=== PATIENT | female | born 1990 | race Asian ===

== ENCOUNTER 2020-05-09 14:35 | Emergency (ER) | payer OTHER ==
[~2020-05-09] VITALS: Ht 160 cm; Wt 68.0 kg
--- NOTE | 2020-05-09 15:14 | PHYS DOC ---
General Adult EDM: Chief Complaint: VAGINAL BLEEDING HPI: HPI: Patient is a 29 year old who presents with last menstrual period being April 19 and yesterday she noticed some blood in her urine only. She states she does not have any vaginal discharge or bleeding. She states that she made a appointment with a doctor on June 05. She states she is moved here from [place] and has not previously seen a doctor here. She states that she took a test and she was . She has had 2 pregnancies in the past without complication. She has a 1 out of 10 mid lower abdominal cramping type pain. Patient denies nausea, vomiting, diarrhea, dizziness, headache, chest pain, shortness of air, fever, back pain, abnormal vaginal discharge, vaginal bleeding. Review of Systems: Review of Systems: Constitutional: Denies fever or chills. [] Eyes: Denies change in visual acuity. [] HENT: Denies nasal congestion or sore throat. [] Respiratory: Denies cough or shortness of breath. [] Cardiovascular: Denies chest pain or edema. [] GI: + Low mid abdominal pain, denies nausea, vomiting, bloody stools or diarrhea. [] : Denies dysuria. Blood in urine. [] Musculoskeletal: Denies back pain or joint pain. [] Integument: Denies rash. [] Neurologic: Denies headache, focal weakness or sensory changes. [] Endocrine: Denies polyuria or polydipsia. [] Lymphatic: Denies swollen glands. [] Psychiatric: Denies depression or anxiety. [] Heart Score: Risk Factors: Risk Factors: DM, Current or recent (<one month) smoker, HTN, HLP, family history of CAD, obesity. Risk Scores: Score 0 - 3: 2.5% MACE over next 6 weeks - Discharge Home Score 4 - 6: 20.3% MACE over next 6 weeks - Admit for Clinical Observation Score 7 - 10: 72.7% MACE over next 6 weeks - Early Invasive Strategies Allergies: Allergies: Allergies Coded Allergies Type Severity Reaction Last Updated Verified No Known Drug Allergies 05/09/20 No Physical Exam: PE: Constitutional: Well developed, well nourished, no acute distress, non-toxic appearance. [] HENT: Normocephalic, atraumatic, bilateral external ears normal, oropharynx moist, no oral exudates, nose normal. [] Eyes: PERRLA, EOMI, conjunctiva normal, no discharge. [] Neck: Normal range of motion, no tenderness, supple, no stridor. [] Cardiovascular:Heart rate regular rhythm, no murmur [] Lungs & Thorax: Bilateral breath sounds clear to auscultation [] Abdomen: Bowel sounds normal, soft, no tenderness, no masses, no pulsatile clary s. [] Skin: Warm, dry, no erythema, no rash. [] Back: No tenderness, no CVA tenderness. [] Extremities: No tenderness, no cyanosis, no clubbing, ROM intact, no edema. [] Neurologic: Alert and oriented X 3, normal motor function, normal sensory function, no focal deficits noted. [] Psychologic: Affect normal, judgement normal, mood normal. Normal physical exam. [] Current Patient Data: Labs: Laboratory Tests Test 05/09/20 14:57 POC Urine HCG, Qualitative Hcg negative (Negative) EKG: EKG: [] Radiology/Procedures: Radiology/Procedures: [] Impression: [facility] [address] [place] [address] IMAGING REPORT Signed PATIENT: JOAN RIVERS ACCOUNT: [id number] : 1990 LOCATION: ER AGE: 29 SEX: F EXAM STATUS: REG ER ORD. PHYSICIAN: NOLAN STRONG APRN REASON: BLOOD IN URINE, ABD PAIN PROCEDURE: CT ABDOMEN PELVIS WO CONTRAST INDICATION: Reason: BLOOD IN URINE, ABD PAIN / Spl. Instructions: / History: COMPARISON: None. TECHNIQUE: Axial CT images obtained through the abdomen and pelvis without contrast. One or more of the following individualized dose reduction techniques were utilized for this examination: 1. Automated exposure control; 2. Adjustment of the mA and/or kV according to patient size; 3. Use of iterative reconstruction technique. FINDINGS: Abdominal aorta is not aneurysmal. Small fat-containing umbilical hernia. No intrahepatic bile duct dilation. No peripancreatic fluid collection. Spleen unremarkable. No hydronephrosis. Urinary bladder distended at time of exam. There is some fullness in the right adnexa. The suspected appendix is only partially seen secondary to multiple loops of unopacified bowel within the region. There is not definitive adjacent inflammatory changes. Moderate compression fracture of L2 with retropulsion. IMPRESSION: * No hydronephrosis. The urinary bladder is dilated at time of exam. This could be from the patient not urinating recently but would correlate with symptoms to ensure there is not a pathologic cause such as bladder outlet obstruction. * Within the right adnexa there is some fullness seen. Cannot exclude a right ovarian lesion given this finding and if further evaluation is desired ultrasound could further assess. * Moderate compression fracture of L2 with retropulsion. Would correlate with history of fracture. Electronically signed by: Lokesh Quiros MD (05/09/2020 5:03 PM) [id number] DICTATED and SIGNED BY: LOKESH QUIROS MD DATE: 05/09/20 1703 [facility] [address] [place] [address] IMAGING REPORT Signed PATIENT: JOAN RIVERS ACCOUNT: [id number] : 1990 LOCATION: ER AGE: 29 SEX: F EXAM STATUS: REG ER ORD. PHYSICIAN: NOLAN STRONG APRN REASON: abnormal CT PROCEDURE: PELVIS ULTRASOUND EXAMINATION: PELVIS ULTRASOUND, 05/09/2020 5:20 PM CLINICAL INDICATION: Abnormal CT TECHNIQUE: Grayscale, color and spectral Doppler ultrasound images of the pelvis via transabdominal and transvaginal approach. COMPARISON: CT abdomen pelvis 05/09/2020 FINDINGS: The uterus measures 9.0 x 5.1 x 4.2 cm. The endometrial stripe measures 4 mm in thickness. No myometrial mass. The right ovary measures 3.5 x 2.6 x 2.6 cm. There is an anechoic right ovarian cyst measuring 2.9 x 2.1 x 1.7 cm. Normal ultrasound venous Doppler blood flow to the right ovary. The left ovary measures 2.8 x 1.9 x 1.7 cm. There is normal right ovarian parenchyma. Normal ultrasound venous Doppler blood flow to the left ovary. No adnexal mass or free fluid. IMPRESSION: 2.9 cm simple right ovarian cyst. No evidence of ovarian torsion or other acute abnormality. Electronically signed by: Mahsa Huber MD (05/09/2020 6:49 PM) [id number] DICTATED and SIGNED BY: MAHSA HUBER MD DATE: 05/09/20 1849 Course & Med Decision Making: Course & Med Decision Making Pertinent Labs and Imaging studies reviewed. (See chart for details) Alert and oriented x4. Kiswahili speaking. Glass Sander Belt phone was used. Abdomen is soft and nontender. Ambulatory with a steady gait. Skin pink warm and dry. Vital signs within normal limits. Patient denies any concerns for sexually tra nsmitted diseases. Blood work shows no acute findings. Patient is not . CT shows ovarian cyst and so this ultrasound. I will treat the patient for her urinary symptoms. Patient to follow-up with a sports medicine trainer or the primary care doctor that she is scheduled to see on June 05. Karen Disclaimer: Karen Disclaimer: This electronic medical record was generated, in whole or in part, using a voice recognition dictation system. Departure Departure Impression: Primary Impression: Urinary symptom or sign Additional Impression: Ovarian cyst Qualified Codes: N83.201 - Unspecified ovarian cyst, right side Disposition: HOME, SELF-CARE Condition: STABLE Referrals: NO PCP (PCP) VOLODYMYR DASILVA Jr, MD Patient Instructions: Dysuria-Brief, Ovarian Cyst, [id number] Additional Instructions: Take medication as prescribed and with food. Follow-up with a sports medicine trainer or t he primary care doctor that you have scheduled an appointment with. Drink plenty of fluids. Take ibuprofen or Tylenol for your pain. Scripts Cephalexin (KEFLEX) 500 Mg Capsule 1 CAP PO BID for 7 Days, #14 CAP 0 Refills Prov: NOLAN STRONG APRN 05/09/20 Justicifation of Admission Dx: Justifications for Admission: Justification of Admission Dx: N/A NOLAN STRONG APRN May 09, 2020 15:14
[2020-05-09] MEDS ORDERED: IV NORMAL SALINE 1000ML BAG 1,000 ML IV SCH (15:20)
[2020-05-09 15:31] LABS: BASO # 0.1 x10^3/uL (0.0-0.2); BASO % 1 % (0-3); EOS # 0.1 x10^3/uL (0.0-0.7); EOS % 1 % (0-3); HEMATOCRIT 44.3 % (36.0-47.0); HEMOGLOBIN 15.2 g/dL (12.0-15.5); LYMPH # 2.7 x10^3/uL (1.0-4.8); LYMPH % 27 % (24-48); MEAN CORPUSCULAR HEMOGLOBIN 32 pg (25-35); MEAN CORPUSCULAR HGB CONC 34 g/dL (31-37); MEAN CORPUSCULAR VOLUME 92 fL (79-100); MONO # 0.6 x10^3/uL (0.0-1.1); MONO % 6 % (0-9); NEUT # 6.8 x10^3/uL (1.8-7.7); NEUT % 66 % (31-73); PLATELET COUNT 337 x10^3/uL (140-400); RED CELL DISTRIBUTION WIDTH 12.9 % (11.5-14.5); WHITE BLOOD COUNT 10.2 x10^3/uL (4.0-11.0)
[2020-05-09 15:31] LABS: BILIRUBIN,URINE NEGATIVE (NEG); CLARITY,URINE CLEAR; COLOR,URINE YELLOW; NITRITE,URINE NEGATIVE (NEG); PROTEIN,URINE 30 mg/dL (NEG-TRACE); UROBILINOGEN,URINE 0.2 mg/dL (0.2 mg/dL)
[2020-05-09 15:37] LABS: CALCIUM 9.3 mg/dL (8.5-10.1); CREATININE 0.8 mg/dL (0.6-1.0); GFR 84.8; POTASSIUM 3.3 mmol/L (3.5-5.1)
[2020-05-09 15:44] LABS: ALBUMIN 3.9 g/dL (3.4-5.0); TOTAL BILIRUBIN 0.5 mg/dL (0.2-1.0); TOTAL PROTEIN 7.9 g/dL (6.4-8.2)
[2020-05-09 15:46] LABS: PROTHROMBIN TIME PATIENT 12.1 SEC (11.7-14.0)
[2020-05-09 16:09] LABS: BACTERIA,URINE 0 /HPF (0-FEW); RBC,URINE OCC /HPF (0-2); SQUAMOUS EPITHELIAL CELL,UR OCC /LPF; WBC,URINE OCC /HPF (0-4)
--- NOTE | 2020-05-09 17:06 | RAD ---
INDICATION: Reason: BLOOD IN URINE, ABD PAIN / Spl. Instructions: / History: COMPARISON: None. TECHNIQUE: Axial CT images obtained through the abdomen and pelvis without contrast. One or more of the following individualized dose reduction techniques were utilized for this examination: 1. Automated exposure control; 2. Adjustment of the mA and/or kV according to patient size; 3. Use of iterative reconstruction technique. FINDINGS: Abdominal aorta is not aneurysmal. Small fat-containing umbilical hernia. No intrahepatic bile duct dilation. No peripancreatic fluid collection. Spleen unremarkable. No hydronephrosis. Urinary bladder distended at time of exam. There is some fullness in the right adnexa. The suspected appendix is only partially seen secondary to multiple loops of unopacified bowel within the region. There is not definitive adjacent inflammatory changes. Moderate compression fracture of L2 with retropulsion. IMPRESSION: * No hydronephrosis. The urinary bladder is dilated at time of exam. This could be from the patient not urinating recently but would correlate with symptoms to ensure there is not a pathologic cause such as bladder outlet obstruction. * Within the right adnexa there is some fullness seen. Cannot exclude a right ovarian lesion given this finding and if further evaluation is desired ultrasound could further assess. * Moderate compression fracture of L2 with retropulsion. Would correlate with history of fracture. Electronically signed by: Abhilash Cruz MD (05/09/2020 5:03 PM) [id number]
--- NOTE | 2020-05-09 18:52 | RAD ---
EXAMINATION: PELVIS ULTRASOUND, 05/09/2020 5:20 PM CLINICAL INDICATION: Abnormal CT TECHNIQUE: Grayscale, color and spectral Doppler ultrasound images of the pelvis via transabdominal and transvaginal approach. COMPARISON: CT abdomen pelvis 05/09/2020 FINDINGS: The uterus measures 9.0 x 5.1 x 4.2 cm. The endometrial stripe measures 4 mm in thickness. No myometrial mass. The right ovary measures 3.5 x 2.6 x 2.6 cm. There is an anechoic right ovarian cyst measuring 2.9 x 2.1 x 1.7 cm. Normal ultrasound venous Doppler blood flow to the right ovary. The left ovary measures 2.8 x 1.9 x 1.7 cm. There is normal right ovarian parenchyma. Normal ultrasound venous Doppler blood flow to the left ovary. No adnexal mass or free fluid. IMPRESSION: 2.9 cm simple right ovarian cyst. No evidence of ovarian torsion or other acute abnormality. Electronically signed by: aMhsa Huber MD (05/09/2020 6:49 PM) [id number]
[2020-05-09] MEDS ORDERED: CEPH-264 PO (18:56)
[2020-05-09 19:05] VITALS: BP 141/100
== END 2020-05-09 19:12 | disposition home or self-care (01) ==
LOC: ER 14:35
DX: N83.291 Other ovarian cyst, right side (principal); R31.9 Hematuria, unspecified
CPT/HCPCS: 36415; 74176; 76856; 80053; 81001; 81025; 84702; 85025; 85610; 86850; 86900; 86901; 96360; 96361; 99285; J7030

== ENCOUNTER 2020-08-26 13:40 | Emergency (ER) | payer OTHER ==
[~2020-08-26] VITALS: Ht 160 cm; Wt 67.3 kg
[~2020-08-26 13:40] MED LIST: CEPH-264 PO
[2020-08-26 14:55] LABS: BILIRUBIN,URINE NEGATIVE (NEG); CLARITY,URINE CLEAR; COLOR,URINE YELLOW; NITRITE,URINE NEGATIVE (NEG); PH,URINE 6.5 (<5.0-8.0); PROTEIN,URINE NEGATIVE (NEG-TRACE); UROBILINOGEN,URINE 0.2 mg/dL (0.2 mg/dL)
[2020-08-26 14:59] LABS: BACTERIA,URINE 0 /HPF (0-FEW); RBC,URINE OCC /HPF (0-2); WBC,URINE 0 /HPF (0-4)
--- NOTE | 2020-08-26 15:19 | PHYS DOC ---
Past Medical History Past Medical History: No Pertinent History (KIRAN LLANES APRN) Past Surgical History: (KIRAN LLANES APRN) Smoking Status: Never Smoker Alcohol Use: None (KIRAN LLANES APRN) General Adult EDM: Chief Complaint: ABDOMINAL PAIN HPI: HPI: Patient is a 30 year old Yakut speaking female very poor historian presenting to the ED today complaining of epigastric burning pain, abdominal swelling, sym ptoms began a couple days ago. Patient is also complaining of nausea and poor appetite. Research Biostatistician line is being used but communication is still difficult. She was informed she is . She states she has been twice before and has lost 1 . She states she had a positive test in June but had a vaginal bleeding episode and thought she lost the . Her last menstrual cycle was June 30, 2020. She denies any vaginal bleeding today. (KIRAN LLANES APRN) Review of Systems: Review of Systems: Constitutional: Denies fever or chills. [] Eyes: Denies change in visual acuity. [] HENT: Denies nasal congestion or sore throat. [] Respiratory: Denies cough or shortness of breath. [] Cardiovascular: Denies chest pain or edema. [] GI: Reports abdominal pain, poor appetite, nausea, denies vomiting, bloody stools or diarrhea. [] : Denies dysuria. [] Musculoskeletal: Denies back pain or joint pain. [] Integument: Denies rash. [] Neurologic: Denies headache, focal weakness or sensory changes. [] Psychiatric: Denies depression or anxiety. [] (KIRAN LLANES APRN) Heart Score: Risk Factors: Risk Factors: DM, Current or recent (<one month) smoker, HTN, HLP, family history of CAD, obesity. Risk Scores: Score 0 - 3: 2.5% MACE over next 6 weeks - Discharge Home Score 4 - 6: 20.3% MACE over next 6 weeks - Admit for Clinical Observation Score 7 - 10: 72.7% MACE over next 6 weeks - Early Invasive Strategies (KIRAN LLANES APRN) Allergies: Allergies: Allergies Coded Allergies Type Severity Reaction Last Updated Verified No Known Drug Allergies 08/26/20 No (KIRAN LLANES APRN) Physical Exam: PE: Constitutional: Well developed, well nourished, no acute distress, non-toxic appearance. [] HENT: Normocephalic, atraumatic, bilateral external ears normal, oropharynx moist, no oral exudates, nose normal. [] Eyes: PERRLA, EOMI, conjunctiva normal, no discharge. [] Neck: Normal range of motion, no tenderness, supple, no stridor. [] Cardiovascular:Heart rate regular rhythm, no murmur [] Lungs & Thorax: Bilateral breath sounds clear to auscultation [] Abdomen: Bowel sounds normal, soft, no tenderness, no masses, no pulsatile mas ses. [] Skin: Warm, dry, no erythema, no rash. [] Back: No tenderness, no CVA tenderness. [] Extremities: No tenderness, no cyanosis, no clubbing, ROM intact, no edema. [] Neurologic: Alert and oriented X 3, normal motor function, normal sensory function, no focal deficits noted. [] Psychologic: Affect normal, judgement normal, mood normal. [] (KIRAN LLANES APRN) Current Patient Data: Labs: Laboratory Tests Test 08/26/20 13:50 08/26/20 14:00 Urine Collection Type Unknown Urine Color Yellow Urine Clarity Clear Urine pH 6.5 (<5.0-8.0) Urine Specific Homer <=1.005 (1.000-1.030) Urine Protein Negative mg/dL (NEG-TRACE) Urine Glucose (UA) Negative mg/dL (NEG) Urine Ketones (Stick) Negative mg/dL (NEG) Urine Blood Trace (NEG) Urine Nitrite Negative (NEG) Urine Bilirubin Negative (NEG) Urine Urobilinogen Dipstick 0.2 mg/dL (0.2 mg/dL) Urine Leukocyte Esterase Negative (NEG) Urine RBC Occ /HPF (0-2) Urine WBC 0 /HPF (0-4) Urine Squamous Epithelial Cells Few /LPF Urine Bacteria 0 /HPF (0-FEW) POC Urine HCG, Qualitative Hcg positive (Negative) Vital Signs: Vital Signs Date Time Temp Pulse Resp B/P (MAP) Pulse Ox O2 Delivery O2 Flow Rate FiO2 08/26/20 14:30 98.6 86 18 145/98 (114) 100 Room Air 98.6 (KIRAN LLANES APRN) EKG: EKG: [] (KIRAN LLANES APRN) Radiology/Procedures: Radiology/Procedures: []PROCEDURE: OB < 14 WKS Exam: Ultrasound pelvis Indication: Abdominal pain and Technique: Real-time grayscale and color Doppler images of the pelvis were obtained by the department distribution systems superintendent. Comparisons: 05/09/2020 FINDINGS: Uterus measures 11 x 6.8 x 5.4 cm. Within the endometrium there is a gestational sac with pole measuring 9 mm corresponding to 6 weeks 6 days gestation. heart rate measured at 133 bpm. Right ovary measures 3.0 x 1.9 x 1.5 cm. Left ovary measures 3.1 x 1.7 x 1.7 cm. Vascular flow identified within the ovaries bilaterally. No free fluid. IMPRESSION: 1. Single live intrauterine gestation measuring 6 weeks 6 days by current ultrasound. 2. Dedicated survey is recommended at 18-20 weeks gestation. Electronically signed by: Nikkie Neff MD (08/26/2020 5:49 PM) [facility] DICTATED and SIGNED BY: NIKKIE NEFF MD DATE: 08/26/20 [id number] 0 (KIRAN LLANES APRN) Course & Med Decision Making: Course & Med Decision Making Pertinent Labs and Imaging studies reviewed. (See chart for details) This is a 30-year-old female patient Yakut speaking very poor historian presenting to the ED today complaining of abdominal pain specifically epigastric pain, with poor appetite, nausea and abdominal swelling. Positive urine hCG. This is a 3 para 1 right now with 1 miscarriage. UA negative for infection. CBC with a WBC of 12.6, hemoglobin hematocrit are normal, CMP with no acute findings. OB ultrasound -single live intrauterine gestation measuring 6 weeks 6 days by current ultrasound. Patient is in no distress. Results were discussed with patient and . They states they are from out of town. Provided that an BLEACH PACKER for follow-up. Discharged with Zofran. Return precautions provided. (KIRAN LLANES APRN) Karen Disclaimer: Karen Disclaimer: This electronic medical record was generated, in whole or in part, using a voice recognition dictation system. (KIRAN LLANES APRN) Departure Departure Impression: Primary Impression: Abdominal pain in Qualified Codes: O26.891 - Other specified related conditions, first trimester; R10.9 - Unspecified abdominal pain Disposition: 01 DC HOME SELF CARE/HOMELESS Condition: STABLE Referrals: NO PCP (PCP) VOLODYMYR DASILVA Jr, MD Patient Instructions: Abdominal Pain During , [id number] Additional Instructions: You are 6 weeks 6 days . Congratulations!!! Take the prescribed medication for nausea and vomiting. Please contact the provided BLEACH PACKER on Friday and set up a follow-up appointment. Scripts Ondansetron (ONDANSETRON ODT) 4 Mg Tab.rapdis 1 TAB PO PRN Q6-8HRS, #30 TAB Prov: KIRAN LLANES SENIOR TREASURY ANALYST 08/26/20 Attending Signature Attending Signature I have reviewed the PA/AUTOMOTIVE DIAGNOSTIC TECHNICIAN's note and plan of care. I was available for consultation as needed during the patient's visit in the emergency department. I agree with the clinical impression, plan, and disposition. (JANIE TANG DO) KIRAN LLANES SENIOR TREASURY ANALYST Aug 26, 2020 15:19 JANIE TANG DO Aug 26, 2020 19:00
[2020-08-26 15:24] LABS: BASO % 0 % (0-3); EOS # 0.1 x10^3/uL (0.0-0.7); EOS % 1 % (0-3); HEMATOCRIT 42.1 % (36.0-47.0); HEMOGLOBIN 14.4 g/dL (12.0-15.5); LYMPH # 2.9 x10^3/uL (1.0-4.8); LYMPH % 23 % (24-48); MEAN CORPUSCULAR HEMOGLOBIN 31 pg (25-35); MEAN CORPUSCULAR HGB CONC 34 g/dL (31-37); MEAN CORPUSCULAR VOLUME 92 fL (79-100); MONO % 8 % (0-9); NEUT # 8.6 x10^3/uL (1.8-7.7); NEUT % 68 % (31-73); PLATELET COUNT 290 x10^3/uL (140-400); RED BLOOD COUNT 4.57 x10^6/uL (3.50-5.40); RED CELL DISTRIBUTION WIDTH 12.8 % (11.5-14.5); WHITE BLOOD COUNT 12.6 x10^3/uL (4.0-11.0)
[2020-08-26 15:33] LABS: CALCIUM 9.1 mg/dL (8.5-10.1); CREATININE 0.7 mg/dL (0.6-1.0); GFR 98.3; POTASSIUM 3.9 mmol/L (3.5-5.1)
[2020-08-26 15:41] LABS: ALBUMIN 3.5 g/dL (3.4-5.0); ALBUMIN/GLOBULIN RATIO 0.9 (1.0-1.7); TOTAL BILIRUBIN 0.2 mg/dL (0.2-1.0); TOTAL PROTEIN 7.2 g/dL (6.4-8.2)
--- NOTE | 2020-08-26 17:51 | RAD ---
Exam: Ultrasound pelvis Indication: Abdominal pain and Technique: Real-time grayscale and color Doppler images of the pelvis were obtained by the department pole framer machine. Comparisons: 05/09/2020 FINDINGS: Uterus measures 11 x 6.8 x 5.4 cm. Within the endometrium there is a gestational sac with pole measuring 9 mm corresponding to 6 weeks 6 days gestation. heart rate measured at 133 bpm. Right ovary measures 3.0 x 1.9 x 1.5 cm. Left ovary measures 3.1 x 1.7 x 1.7 cm. Vascular flow identified within the ovaries bilaterally. No free fluid. IMPRESSION: 1. Single live intrauterine gestation measuring 6 weeks 6 days by current ultrasound. 2. Dedicated survey is recommended at 18-20 weeks gestation. Electronically signed by: Nikkie Syed MD (08/26/2020 5:49 PM) [facility]
[2020-08-26] MEDS ORDERED: ONDA4TAB12 PO (18:32)
[2020-08-26 19:12] VITALS: BP 138/86
== END 2020-08-26 19:21 | disposition home or self-care (01) ==
LOC: ER 13:40
DX: O26.891 Other specified pregnancy related conditions, first trimester (principal); R10.13 Epigastric pain; R11.0 Nausea; Z3A.01 Less than 8 weeks gestation of pregnancy
CPT/HCPCS: 36415; 76801; 80053; 81001; 81025; 84702; 85025; 99285-25

== ENCOUNTER 2020-09-03 18:40 | Emergency (ER) | payer OTHER ==
[~2020-09-03] VITALS: Ht 160 cm; Wt 75.9 kg
[~2020-09-03 18:40] MED LIST changes: +ONDA4TAB12 PO
[2020-09-03] MEDS ORDERED: METOCLOPRAMIDE HCL 10 MG/2 ML VIAL. IVP ONE (19:30)
[2020-09-03 19:35] LABS: BASO # 0.1 x10^3/uL (0.0-0.2); BASO % 1 % (0-3); EOS # 0.1 x10^3/uL (0.0-0.7); EOS % 0 % (0-3); HEMATOCRIT 42.5 % (36.0-47.0); HEMOGLOBIN 14.6 g/dL (12.0-15.5); LYMPH # 2.7 x10^3/uL (1.0-4.8); LYMPH % 20 % (24-48); MEAN CORPUSCULAR HEMOGLOBIN 32 pg (25-35); MEAN CORPUSCULAR HGB CONC 34 g/dL (31-37); MEAN CORPUSCULAR VOLUME 93 fL (79-100); MONO # 0.9 x10^3/uL (0.0-1.1); MONO % 7 % (0-9); NEUT # 9.7 x10^3/uL (1.8-7.7); NEUT % 73 % (31-73); PLATELET COUNT 299 x10^3/uL (140-400); RED BLOOD COUNT 4.58 x10^6/uL (3.50-5.40); RED CELL DISTRIBUTION WIDTH 12.7 % (11.5-14.5); WHITE BLOOD COUNT 13.4 x10^3/uL (4.0-11.0)
[2020-09-03 19:37] LABS: BILIRUBIN,URINE NEGATIVE (NEG); CLARITY,URINE CLEAR; COLOR,URINE YELLOW; NITRITE,URINE NEGATIVE (NEG); PH,URINE 7.5 (<5.0-8.0); PROTEIN,URINE NEGATIVE (NEG-TRACE); UROBILINOGEN,URINE 0.2 mg/dL (0.2 mg/dL)
[2020-09-03 19:43] LABS: CALCIUM 9.6 mg/dL (8.5-10.1); CREATININE 0.6 mg/dL (0.6-1.0); GFR 117.4; POTASSIUM 3.4 mmol/L (3.5-5.1)
[2020-09-03 19:49] LABS: BACTERIA,URINE 0 /HPF (0-FEW); RBC,URINE OCC /HPF (0-2); WBC,URINE OCC /HPF (0-4)
[2020-09-03 19:49] LABS: ALBUMIN 3.5 g/dL (3.4-5.0); ALBUMIN/GLOBULIN RATIO 0.9 (1.0-1.7); TOTAL BILIRUBIN 0.4 mg/dL (0.2-1.0); TOTAL PROTEIN 7.2 g/dL (6.4-8.2)
[2020-09-03] MEDS ORDERED: IV NORMAL SALINE 1000ML BAG 1,000 ML IV ONE (20:00)
[2020-09-03] MEDS ORDERED: ACETAMINOPHEN 500 MG TABLET PO ONE (21:00)
[2020-09-03] MEDS ORDERED: ONDANSETRON PF 4 MG/2 ML VIAL. IVP ONE (21:00)
[2020-09-03] MEDS ORDERED: METO5TAB55 PO (21:39)
--- NOTE | 2020-09-03 21:39 | PHYS DOC ---
Past Medical History Past Medical History: No Pertinent History Past Surgical History: Smoking Status: Never Smoker Alcohol Use: None Adult General Chief Complaint Chief Complaint: NAUSEA/VOMITING/DIARRHA HPI HPI Patient is a 30 year old female who is 9 weeks by last menstrual period now presenting emergency department complaining of new onset of nausea vomiting. Patient states over the last she had multiple episodes of difficulty controlled nausea vomiting. Patient states over the last 24 hours has been feeling mild midepigastric discomfort with nausea. Had 3 episodes of nonbloody nonbilious vomiting. Denies any diarrhea. Denies any chest pain or shortness of breath. Denies any dizziness or lightheadedness. Review of Systems Review of Systems Constitutional: Denies fever or chills [] Eyes: Denies change in visual acuity, redness, or eye pain [] HENT: Denies nasal congestion or sore throat [] Respiratory: Denies cough or shortness of breath [] Cardiovascular: No additional information not addressed in HPI [] GI: Denies abdominal pain, nausea, vomiting, bloody stools or diarrhea [] : Denies dysuria or hematuria [] Musculoskeletal: Denies back pain or joint pain [] Integument: Denies rash or skin lesions [] Neurologic: Denies headache, focal weakness or sensory changes [] Endocrine: Denies polyuria or polydipsia [] All other systems were reviewed and found to be within normal limits, except as documented in this note. Current Medications Current Medications Current Medications Medications (Trade) Dose Ordered Sig/Noemi Start Time Stop Time Status Last Admin Dose Admin Acetaminophen (Tylenol) 1,000 mg 1X ONCE 09/03/20 21:00 09/03/20 21:01 DC 09/03/20 21:01 1,000 MG Metoclopramide HCl (Reglan Vial) 10 mg 1X ONCE 09/03/20 19:30 09/03/20 19:31 DC 09/03/20 19:52 10 MG Ondansetron HCl (Zofran) 4 mg 1X ONCE 09/03/20 21:00 09/03/20 21:01 DC 09/03/20 21:01 4 MG Sodium Chloride 1,000 ml @ 1,000 mls/hr 1X ONCE 09/03/20 20:00 09/03/20 20:59 DC 09/03/20 19:30 1,000 MLS/HR Allergies Allergies Allergies Coded Allergies Type Severity Reaction Last Updated Verified No Known Drug Allergies 08/26/20 No Physical Exam Physical Exam Constitutional: Well developed, well nourished, no acute distress, non-toxic appearance. [] HENT: Normocephalic, atraumatic, bilateral external ears normal, oropharynx moist, no oral exudates, nose normal. [] Eyes: PERRLA, EOMI, conjunctiva normal, no discharge. [] Neck: Normal range of motion, no tenderness, supple, no stridor. [] Cardiovascular:Heart rate regular rhythm, no murmur [] Lungs & Thorax: Bilateral breath sounds clear to auscultation [] Abdomen: Bowel sounds normal, soft, no tenderness, no masses, no pulsatile masses. [] Skin: Warm, dry, no erythema, no rash. [] Back: No tenderness, no CVA tenderness. [] Extremities: No tenderness, no cyanosis, no clubbing, ROM intact, no edema. [] Neurologic: Alert and oriented X 3, normal motor function, normal sensory function, no focal deficits noted. [] Psychologic: Affect normal, judgement normal, mood normal. [] Current Patient Data Vital Signs Vital Signs Date Time Temp Pulse Resp B/P (MAP) Pulse Ox O2 Delivery O2 Flow Rate FiO2 09/03/20 19:10 98.5 86 20 135/98 (110) 100 Room Air 98.5 Lab Values Laboratory Tests Test 09/03/20 19:15 09/03/20 19:22 Urine Collection Type Unknown Urine Color Yellow Urine Clarity Clear Urine pH 7.5 (<5.0-8.0) Urine Specific [place] <=1.005 (1.000-1.030) Urine Protein Negative mg/dL (NEG-TRACE) Urine Glucose (UA) Negative mg/dL (NEG) Urine Ketones (Stick) Negative mg/dL (NEG) Urine Blood Small (NEG) Urine Nitrite Negative (NEG) Urine Bilirubin Negative (NEG) Urine Urobilinogen Dipstick 0.2 mg/dL (0.2 mg/dL) Urine Leukocyte Esterase Negative (NEG) Urine RBC Occ /HPF (0-2) Urine WBC Occ /HPF (0-4) Urine Squamous Epithelial Cells Few /LPF Urine Bacteria 0 /HPF (0-FEW) White Blood Count 13.4 x10^3/uL (4.0-11.0) H Red Blood Count 4.58 x10^6/uL (3.50-5.40) Hemoglobin 14.6 g/dL (12.0-15.5) Hematocrit 42.5 % (36.0-47.0) Mean Corpuscular Volume 93 fL (79-100) Mean Corpuscular Hemoglobin 32 pg (25-35) Mean Corpuscular Hemoglobin Concent 34 g/dL (31-37) Red Cell Distribution Width 12.7 % (11.5-14.5) Platelet Count 299 x10^3/uL (140-400) Neutrophils (%) (Auto) 73 % (31-73) Lymphocytes (%) (Auto) 20 % (24-48) L Monocytes (%) (Auto) 7 % (0-9) Eosinophils (%) (Auto) 0 % (0-3) Basophils (%) (Auto) 1 % (0-3) Neutrophils # (Auto) 9.7 x10^3/uL (1.8-7.7) H Lymphocytes # (Auto) 2.7 x10^3/uL (1.0-4.8) Monocytes # (Auto) 0.9 x10^3/uL (0.0-1.1) Eosinophils # (Auto) 0.1 x10^3/uL (0.0-0.7) Basophils # (Auto) 0.1 x10^3/uL (0.0-0.2) Maternal Serum HCG Beta Subunit 00856 mIU/mL (0-5) H Sodium Level 139 mmol/L (136-145) Potassium Level 3.4 mmol/L (3.5-5.1) L Chloride Level 104 mmol/L (98-107) Carbon Dioxide Level 26 mmol/L (21-32) Anion Gap 9 (6-14) Blood Urea Nitrogen 2 mg/dL (7-20) L Creatinine 0.6 mg/dL (0.6-1.0) Estimated GFR (Cockcroft-Gault) 117.4 BUN/Creatinine Ratio 3 (6-20) L Glucose Level 97 mg/dL (70-99) Calcium Level 9.6 mg/dL (8.5-10.1) Total Bilirubin 0.4 mg/dL (0.2-1.0) Aspartate Amino Transferase (AST) 18 U/L (15-37) Alanine Aminotransferase (ALT) 28 U/L (14-59) Alkaline Phosphatase 66 U/L (46-116) Total Protein 7.2 g/dL (6.4-8.2) Albumin 3.5 g/dL (3.4-5.0) Albumin/Globulin Ratio 0.9 (1.0-1.7) L Laboratory Tests 09/03/20 19:22 Laboratory Tests 09/03/20 19:22 EKG EKG [] Radiology/Procedures Radiology/Procedures [] Course & Med Decision Making Course & Med Decision Making Pertinent Labs and Imaging studies reviewed. (See chart for details) 3-year-old female presenting with new onset of vomiting likely secondary to new onset of . At this time will obtain basic labs to make sure there is no evidence of underlying infection will obtain urine to make sure there is no evidence of proteinuria and treat the patient symptomatically. Dragon Disclaimer Dragon Disclaimer This electronic medical record was generated, in whole or in part, using a voice recognition dictation system. Departure Departure Impression: Primary Impression: Nausea and vomiting during Disposition: 01 DC HOME SELF CARE/HOMELESS Condition: GOOD Referrals: UNKNOWN PCP NAME (PCP) Patient Instructions: Nausea and Vomiting Additional Instructions: EMERGENCY DEPARTMENT GENERAL DISCHARGE INSTRUCTIONS Thank you for coming to [facility] Emergency Department (ED) today and trusting us with you care. We trust that you had a positive experience in our Emergency Department. If you wish to speak to the department management, you may call the Director at [phone]. YOUR FOLLOW UP INSTRUCTIONS ARE FOLLOWS: 1. Do you have a private Doctor? If you do not have a private doctor, please ask for a resource list of physicians or clinics that may be able to assist you with follow up care. 2. The Emergency Physicain has interpreted your x-rays. The X-Ray specialist will also review them. If there is a change in the findings, you will be notified in 48 hours when at all possible. 3. A lab test or culture has been done, your results will be reviewed and you will be notified if you need a change in treatment. ADDITIONAL INSTRUCTIONS AND INFORMATION: 1. Your care today has been supervised by a physician who is specially trained in emergency care. Many problems require more than one evaluation for a complete diagnosis and treatment. We recommend that you schedule your follow up appointment as recommended to ensure complete treatment of you illness or injury. If you are unable to obtain follow up care and continue to have a problem, or if your condition worsens, we recommend that you return to the ED. 2. We are not able to safely determine your condition over the phone nor are we able to give sound medical advice over the phone. For these safety reasons, if you call for medical advice we will ask you to come to the ED for further evaluation. 3. If you have any questions regarding these discharge instructions please call the ED at [phone]. SAFETY INFORMATION: In the interest of safety, wellness, and injury prevention; we encourage you to wear your sealbelt, if you smoke; quite smoking, and we encourage family to use a protective helmet for bicycling and other sporting events that present an increased risk for head injury. IF YOUR SYMPTOMS WORSEN OR NEW SYMPTOMS DEVELOP, OR YOU HAVE CONCERNS ABOUT YOUR CONDITION; OR IF YOUR CONDITION WORSENS WHILE YOU ARE WAITING FOR YOUR FOLLOW UP APPOINTMENT; EITHER CONTACT YOUR PRIMARY CARE DOCTOR, THE PHYSICIAN WHOSE NAME AND NUMBER YOU WERE GIVEN, OR RETURN TO THE ED IMMEDIATELY. Scripts Metoclopramide Hcl (REGLAN) 5 Mg Tablet 1 TAB PO TID for nausea for 20 Days, #60 TAB 0 Refills 1 hour prior to procedure Prov: JERSEY CARRILLO MD 09/03/20 JERSEY CARRILLO MD Sep 03, 2020 21:39
[2020-09-03 21:48] VITALS: BP 131/94
== END 2020-09-03 22:02 | disposition home or self-care (01) ==
LOC: ER 18:40
DX: O21.9 Vomiting of pregnancy, unspecified (principal); Z98.890 Other specified postprocedural states
CPT/HCPCS: 36415; 80053; 81001; 84702; 85025; 96361; 96374; 96375; 99285; J2405; J2765; J7030

== ENCOUNTER 2020-11-18 14:30 | Emergency (ER) | payer OTHER ==
[~2020-11-18] VITALS: Ht 162.6 cm; Wt 75.0 kg
[~2020-11-18 14:30] MED LIST changes: +METO5TAB55 PO
[2020-11-18 15:11] LABS: BILIRUBIN,URINE NEGATIVE (NEG); CLARITY,URINE CLEAR; COLOR,URINE YELLOW; NITRITE,URINE NEGATIVE (NEG); PH,URINE 7.5 (<5.0-8.0); PROTEIN,URINE 100 mg/dL (NEG-TRACE); UROBILINOGEN,URINE 0.2 mg/dL (0.2 mg/dL)
[2020-11-18 15:31] LABS: BACTERIA,URINE 0 /HPF (0-FEW); RBC,URINE OCC /HPF (0-2); WBC,URINE OCC /HPF (0-4)
[2020-11-18 16:07] LABS: BASO # 0.1 x10^3/uL (0.0-0.2); BASO % 1 % (0-3); EOS # 0.1 x10^3/uL (0.0-0.7); EOS % 1 % (0-3); HEMATOCRIT 36.1 % (36.0-47.0); HEMOGLOBIN 12.4 g/dL (12.0-15.5); LYMPH # 2.8 x10^3/uL (1.0-4.8); LYMPH % 20 % (24-48); MEAN CORPUSCULAR HEMOGLOBIN 32 pg (25-35); MEAN CORPUSCULAR HGB CONC 34 g/dL (31-37); MEAN CORPUSCULAR VOLUME 93 fL (79-100); MONO % 7 % (0-9); NEUT # 10.3 x10^3/uL (1.8-7.7); NEUT % 72 % (31-73); PLATELET COUNT 263 x10^3/uL (140-400); RED CELL DISTRIBUTION WIDTH 12.8 % (11.5-14.5); WHITE BLOOD COUNT 14.3 x10^3/uL (4.0-11.0)
--- NOTE | 2020-11-18 16:08 | RAD ---
Exam: Ultrasound OB greater than 14 weeks Indication: Abdominal pain and Technique: Real-time grayscale and color Doppler images of the pelvis were obtained by the department training program manager. Comparisons: None FINDINGS: The uterus is a single live intrauterine gestation with heart rate measured at 141 bpm. Fetus i s in transverse position. Head circumference: 15.9 cm corresponding to 18 weeks 6 days BPD: 4.4 cm corresponding to 19 weeks 3 days Abdominal circumference: 13.3 cm corresponding to 18 weeks 5 days Femur length: 2.9 cm corresponding to 18 weeks 5 days Placenta is posterior and has a normal appearance. MILAD is measured at 10.9 cm. Ovaries are identified secondary to overlying uterus. IMPRESSION: Single live intrauterine gestation with measurements as described above. Electronically signed by: Nikkie Syed MD (11/18/2020 4:05 PM) AYALA
--- NOTE | 2020-11-18 16:37 | PHYS DOC ---
Past Medical History Past Medical History: No Pertinent History Past Surgical History: Smoking Status: Never Smoker Alcohol Use: None General Adult EDM: Chief Complaint: ABDOMINAL PAIN IN HPI: HPI: Patient is a 30 year old female 2 para 1 currently 19 weeks per her statement who presents to the ED today complaining of vaginal bleeding in as well as left lower quadrant abdominal pain, symptoms began today. She states the bleeding is only when she wipes herself after voiding. Denies any trauma. Denies any nausea or vomiting. Rates the pain as mild and intermittent worse on certain sitting positions. Denies anything specifically relieving the pain. Patient reports following up with [facility] for her OB care Clinical Dietitian line was used for [place]erratian language Review of Systems: Review of Systems: Constitutional: Denies fever or chills. [] Eyes: Denies change in visual acuity. [] HENT: Denies nasal congestion or sore throat. [] Respiratory: Denies cough or shortness of breath. [] Cardiovascular: Denies chest pain or edema. [] GI: Reports vaginal bleeding and left lower quadrant abdominal pain, denies nausea, vomiting, bloody stools or diarrhea. [] : Denies dysuria. [] Musculoskeletal: Denies back pain or joint pain. [] Integument: Denies rash. [] Neurologic: Denies headache, focal weakness or sensory changes. [] Psychiatric: Denies depression or anxiety. [] Heart Score: C/O Chest Pain: N/A Risk Factors: Risk Factors: DM, Current or recent (<one month) smoker, HTN, HLP, family history of CAD, obesity. Risk Scores: Score 0 - 3: 2.5% MACE over next 6 weeks - Discharge Home Score 4 - 6: 20.3% MACE over next 6 weeks - Admit for Clinical Observation Score 7 - 10: 72.7% MACE over next 6 weeks - Early Invasive Strategies Allergies: Allergies: Allergies Coded Allergies Type Severity Reaction Last Updated Verified No Known Drug Allergies 08/26/20 No Physical Exam: PE: Constitutional: Well developed, well nourished, no acute distress, non-toxic appearance. [] HENT: Normocephalic, atraumatic, bilateral external ears normal, oropharynx [address], no oral exudates, nose normal. [] Eyes: PERRLA, EOMI, conjunctiva normal, no discharge. [] Neck: Normal range of motion, no tenderness, supple, no stridor. [] Cardiovascular:Heart rate regular rhythm, no murmur [] Lungs & Thorax: Bilateral breath sounds clear to auscultation [] Abdomen: Gravid abdomen. Bowel sounds normal, soft, no tenderness, no masses, no pulsatile masses. [] External pelvic appears normal, cervix is visualized, closed, no CMT, no adnexal tenderness. No bleeding. Trace amount of white discharge noted in the vaginal vault Skin: Warm, dry, no erythema, no rash. [] Back: No tenderness, no CVA tenderness. [] Extremities: No tenderness, no cyanosis, no clubbing, ROM intact, no edema. [] Neurologic: Alert and oriented X 3, normal motor function, normal sensory function, no focal deficits noted. [] Psychologic: Affect normal, judgement normal, mood normal. [] Current Patient Data: Labs: Laboratory Tests Test 11/18/20 14:50 11/18/20 14:55 11/18/20 15:38 Urine Collection Type Unknown Urine Color Yellow Urine Clarity Clear Urine pH 7.5 (<5.0-8.0) Urine Specific [place] <=1.005 (1.000-1.030) Urine Protein 100 mg/dL (NEG-TRACE) Urine Glucose (UA) Negative mg/dL (NEG) Urine Ketones (Stick) Negative mg/dL (NEG) Urine Blood Small (NEG) Urine Nitrite Negative (NEG) Urine Bilirubin Negative (NEG) Urine Urobilinogen Dipstick 0.2 mg/dL (0.2 mg/dL) Urine Leukocyte Esterase Negative (NEG) Urine RBC Occ /HPF (0-2) Urine WBC Occ /HPF (0-4) Urine Squamous Epithelial Cells Few /LPF Urine Bacteria 0 /HPF (0-FEW) POC Urine HCG, Qualitative Hcg positive (Negative) White Blood Count 14.3 x10^3/uL (4.0-11.0) H Red Blood Count 3.90 x10^6/uL (3.50-5.40) Hemoglobin 12.4 g/dL (12.0-15.5) Hematocrit 36.1 % (36.0-47.0) Mean Corpuscular Volume 93 fL (79-100) Mean Corpuscular Hemoglobin 32 pg (25-35) Mean Corpuscular Hemoglobin Concent 34 g/dL (31-37) Red Cell Distribution Width 12.8 % (11.5-14.5) Platelet Count 263 x10^3/uL (140-400) Neutrophils (%) (Auto) 72 % (31-73) Lymphocytes (%) (Auto) 20 % (24-48) L Monocytes (%) (Auto) 7 % (0-9) Eosinophils (%) (Auto) 1 % (0-3) Basophils (%) (Auto) 1 % (0-3) Neutrophils # (Auto) 10.3 x10^3/uL (1.8-7.7) H Lymphocytes # (Auto) 2.8 x10^3/uL (1.0-4.8) Monocytes # (Auto) 1.0 x10^3/uL (0.0-1.1) Eosinophils # (Auto) 0.1 x10^3/uL (0.0-0.7) Basophils # (Auto) 0.1 x10^3/uL (0.0-0.2) Laboratory Tests 11/18/20 15:38 Microbiology 11/18/20 Wet Prep - Final, Complete EKG: EKG: [] Radiology/Procedures: Radiology/Procedures: []ROCEDURE: PREG MORE THAN OR EQ TO 14 WKS Exam: Ultrasound OB greater than 14 weeks Indication: Abdominal pain and Technique: Real-time grayscale and color Doppler images of the pelvis were obtained by the department representative phlebotomy services. Comparisons: None FINDINGS: The uterus is a single live intrauterine gestation with heart rate measured at 141 bpm. Fetus is in transverse position. Head circumference: 15.9 cm corresponding to 18 weeks 6 days BPD: 4.4 cm corresponding to 19 weeks 3 days Abdominal circumference: 13.3 cm corresponding to 18 weeks 5 days Femur length: 2.9 cm corresponding to 18 weeks 5 days Placenta is posterior and has a normal appearance. MILAD is measured at 10.9 cm. Ovaries are identified secondary to overlying uterus. IMPRESSION: Single live intrauterine gestation with measurements as described above. Electronically signed by: Nikkie Neff MD (11/18/2020 4:05 PM) LOCATED [facility]IN [facility] DICTATED and SIGNED BY: NIKKIE NEFF MD DATE: 11/18/20 [id number] 0 Course & Med Decision Making: Course & Med Decision Making Pertinent Labs and Imaging studies reviewed. (See chart for details) This is a 30-year-old female patient presented to the ED today complaining of vaginal bleeding in and left lower quadrant pain, symptoms began today. Per her statement she is currently 19 weeks and follows up with an HEALTH SAFETY MANAGER at [facility]. Patient is non-Nepalese speaker Blood group B+ CBC with a WBC of 14.3, UA negative for infection, wet prep positive for BV. Discharged on Flagyl OB ultrasound noted for an IUP 18 weeks 5 days HR 141 No bleeding was noted in the pelvic exam Unfortunately this patient does not know the name of the OB of what clinic she goes to neither does she have a phone number and so was unable to contact her HEALTH SAFETY MANAGER. Informed patient through the core composer machine tender line she would have to follow- up with her HEALTH SAFETY MANAGER in the course of next week. Bedrest advised. Karen Disclaimer: Karen Disclaimer: This electronic medical record was generated, in whole or in part, using a voice recognition dictation system. Departure Departure Impression: Primary Impression: Abdominal pain in Qualified Codes: O26.892 - Other specified related conditions, second trimester; R10.9 - Unspecified abdominal pain Additional Impression: Bacterial vaginosis Disposition: 01 DC HOME SELF CARE/HOMELESS Condition: STABLE Referrals: UNKNOWN PCP NAME (PCP) Please call your HEALTH SAFETY MANAGER on Friday morning and set up a follow-up appointment Patient Instructions: Abdominal Pain During , Bacterial Vaginosis, [id number] Additional Instructions: You were evaluated in the emergency room. You are 18 weeks 5 days . Your baby's heart rate is 141. This is good. You have bacterial vaginosis, we put you on antibiotics for this. Please contact your HEALTH SAFETY MANAGER tomorrow morning and set up a follow-up appointment. Maintain bedrest, including no intercourse. Do not lift anything greater than a gallon of milk. Scripts Metronidazole (FLAGYL) 500 Mg Tablet 1 TAB PO BID, #14 TAB Prov: MARIO ALBERTOKIRAN Greg MATERIAL CARRIER 11/18/20 KEVINKIRAN HYDE MATERIAL CARRIER Nov 18, 2020 16:37
[2020-11-18] MEDS ORDERED: METR500T PO (17:47)
[2020-11-18 18:00] VITALS: BP 141/93
[2020-11-20 19:16] LABS: GC PROBE Negative (Negative)
== END 2020-11-18 18:12 | disposition home or self-care (01) ==
LOC: ER 14:30
DX: O23.592 Infection of other part of genital tract in pregnancy, second trimester (principal); R10.32 Left lower quadrant pain; Z98.890 Other specified postprocedural states; Z3A.19 19 weeks gestation of pregnancy
CPT/HCPCS: 36415; 76805; 81001; 81025; 84702; 85025; 86850; 86900; 86901; 87491; 87591; 99285; Q0111

== ENCOUNTER 2021-04-27 01:22 | Emergency (ER) | payer OTHER ==
[~2021-04-27] VITALS: Ht 157.5 cm; Wt 73.0 kg
[~2021-04-27 01:22] MED LIST changes: +METR500T PO
[2021-04-27 02:00] VITALS: BP 133/82
[2021-04-27] MEDS ORDERED: KETOROLAC 30 MG/ML VIAL. IVP ONE (02:45)
--- NOTE | 2021-04-27 02:46 | PHYS DOC ---
Past Medical History Past Medical History: No Pertinent History Past Surgical History: Smoking Status: Never Smoker Alcohol Use: None General Adult EDM: Chief Complaint: ABDOMINAL PAIN HPI: HPI: Patient is a 30 year old female who is 21 days presents with a chief complaint of lower abdominal pain associated fever chills and headache. Patient states she has had the fever chills and headache for 1 day. Patient has had lower abdominal pain x3 days. Patient does not have any associated nausea vomiting or diarrhea. Review of Systems: Review of Systems: Review of systems: Constitutional symptoms- Positive fever, Positive chills. Eyes- No Discharge, No Visual Loss Respiratory symptoms- No shortness of breath, No wheezing, No Dyspnea on Exertion Cardiovascular Systems; No chest pain, No Palpitations, No syncope Gastrointestinal symptoms: Positive abdominal pain, no nausea, no vomiting or diarrhea. Genitourinary symptoms: No dysuria. Musculoskeletal symptoms: No back pain No extremity pain. NEUROLOGICAL Symptoms: Positive headache, no generalized weakness; No focal Weakness Skin: No rash. Heart Score: C/O Chest Pain: N/A Risk Factors: Risk Factors: DM, Current or recent (<one month) smoker, HTN, HLP, family history of CAD, obesity. Risk Scores: Score 0 - 3: 2.5% MACE over next 6 weeks - Discharge Home Score 4 - 6: 20.3% MACE over next 6 weeks - Admit for Clinical Observation Score 7 - 10: 72.7% MACE over next 6 weeks - Early Invasive Strategies Current Medications: Current Medications Medications (Trade) Dose Ordered Sig/[facility] Start Time Stop Time Status Last Admin Dose Admin Ketorolac Tromethamine (Toradol 30mg Vial) 30 mg 1X ONCE 04/27/21 02:45 04/27/21 02:46 Allergies: Allergies: Allergies Coded Allergies Type Severity Reaction Last Updated Verified No Known Drug Allergies 08/26/20 No Physical Exam: PE: General: alert, no acute distress. Skin: warm, dry and intact, no erythema, no rash. HENT: bilateral external ears normal, oropharynx moist, nose normal. Head:: Normocephalic, atraumatic. Neck: Trachea midline. Eyes: EOMI, Normal conjunctiva, No drainage CARDIOVASCULAR: Regular rate and rhythm RESPIRATORY: No respiratory distress Back: Full range of motion. MUSCULOSKELETAL: Full range of motion of bilateral upper and lower extremities. GASTROINTESTINAL: Abdomen soft without rebound or guarding. NEUROLOGICAL: Alert and noted to person, place and time. No neurological deficits observed Psychiatric: Cooperative. Normal judgment Current Patient Data: Labs: Laboratory Tests Test 04/27/21 01:48 POC Urine HCG, Qualitative Hcg negative (Negative) EKG: EKG: [] Radiology/Procedures: Radiology/Procedures: [] Impression: EXAM: CT Abdomen and Pelvis with IV contrast CLINICAL HISTORY: Reason: ABD PAIN;OMNI 300, 75ML / Spl. Instructions: / History: . COMPARISON: CT 05/09/2020 TECHNIQUE: Helical CT of the abdomen and pelvis was performed following the administration of intravenous contrast. Axial, coronal and sagittal reformatted images were generated. PQRS compliance statement - One or more of the following individualized dose reduction techniques were utilized for this study: 1. Automated exposure control 2. Adjustment of the mA and/or kV according to patient size 3. Use of iterative reconstruction technique FINDINGS: Exam is degraded secondary to patient motion. Lower Chest: Scattered basilar groundglass opacities, likely represents segmental atelectasis. Abdomen and Pelvis: The liver, gallbladder, spleen adrenals, pancreas are unremarkable. Symmetric nephrograms. No nephrolithiasis or hydroureteronephrosis.. Subcentimeter hypodensity within the region of the left kidney, too small to characterize. Stomach is unremarkable. There is no evidence of apparent obstruction within the small or large bowel. No evidence of focal wall thickening to suggest acute inflammatory process. There is a moderate amount of stool throughout the colon. The appendix is well-visualized there is no free intra-abdominal air. There is nonspecific mesenteric stranding throughout the abdomen. No pathologically enlarged abdominal lymph nodes. Vascular structures appear normal in course and caliber. The urinary bladder is distended without evidence of focal abnormality. The uterus is enlarged with hypoattenuating fluid in the endometrial canal consistent with a post gravid uterus. The adnexa are within normal limits given patient's age. No significant free pelvic fluid. Bones: Moderate compression fracture of L2 with retropulsion appears overall similar. No evidence of acute osseous process. IMPRESSION: Exam is degraded secondary to patient motion. 1. Nonspecific mesenteric stranding throughout the abdomen. No definite focal abnormality within the abdomen or pelvis to correlate with patient's symptoms. 2. Moderate colonic stool burden suggestive of constipation. 3. appearance of the uterus. Further evaluation with pelvic ultrasound may be considered if there is concern for pelvic pathology. Course & Med Decision Making: Course & Med Decision Making Pertinent Labs and Imaging studies reviewed. (See chart for details) [] Karen Disclaimer: Karen Disclaimer: This electronic medical record was generated, in whole or in part, using a voice recognition dictation system. Departure Departure Impression: Primary Impression: Urinary tract infection Additional Impression: Abdominal pain Disposition: HOME / SELF CARE / HOMELESS Condition: STABLE Referrals: UNKNOWN PCP NAME (PCP) Patient Instructions: Abdominal Pain (Nonspecific), Urinary Tract Infection Scripts Nitrofurantoin Macrocrystal (MACRODANTIN) 100 Mg Capsule 1 CAP PO BID for 7 Days, #14 CAP 0 Refills Prov: INGRID VALENCIA DO 04/27/21 INGRID VALENCIA DO Apr 27, 2021 02:46
[2021-04-27 02:48] LABS: BILIRUBIN,URINE NEGATIVE (NEG); CLARITY,URINE CLEAR; COLOR,URINE YELLOW; NITRITE,URINE NEGATIVE (NEG); PH,URINE 6.5 (<5.0-8.0); PROTEIN,URINE NEGATIVE (NEG-TRACE); UROBILINOGEN,URINE 0.2 mg/dL (0.2 mg/dL)
[2021-04-27 03:00] LABS: BACTERIA,URINE FEW /HPF (0-FEW)
[2021-04-27 03:02] LABS: BASO % 0 % (0-3); EOS % 0 % (0-3); HEMATOCRIT 35.3 % (36.0-47.0); HEMOGLOBIN 12.2 g/dL (12.0-15.5); LYMPH % 10 % (24-48); MEAN CORPUSCULAR HEMOGLOBIN 32 pg (25-35); MEAN CORPUSCULAR HGB CONC 35 g/dL (31-37); MEAN CORPUSCULAR VOLUME 94 fL (79-100); MONO # 0.6 x10^3/uL (0.0-1.1); MONO % 6 % (0-9); NEUT # 8.6 x10^3/uL (1.8-7.7); NEUT % 84 % (31-73); PLATELET COUNT 341 x10^3/uL (140-400); RED BLOOD COUNT 3.77 x10^6/uL (3.50-5.40); RED CELL DISTRIBUTION WIDTH 12.4 % (11.5-14.5); WHITE BLOOD COUNT 10.2 x10^3/uL (4.0-11.0)
[2021-04-27 03:10] LABS: CALCIUM 8.8 mg/dL (8.5-10.1); CREATININE 0.8 mg/dL (0.6-1.0); GFR 84.2
[2021-04-27] MEDS ORDERED: CONTRAST GIVEN. MC PRN (03:15)
[2021-04-27] MEDS ORDERED: IOHEXOL 300 MG/ML 100ML VIAL. IV ONE (03:15)
[2021-04-27 03:16] LABS: ALBUMIN 2.9 g/dL (3.4-5.0); ALBUMIN/GLOBULIN RATIO 0.8 (1.0-1.7); TOTAL BILIRUBIN 0.6 mg/dL (0.2-1.0); TOTAL PROTEIN 6.6 g/dL (6.4-8.2)
--- NOTE | 2021-04-27 04:56 | RAD ---
EXAM: CT Abdomen and Pelvis with IV contrast CLINICAL HISTORY: Reason: ABD PAIN;OMNI 300, 75ML / Spl. Instructions: / History: . COMPARISON: CT 05/09/2020 TECHNIQUE: Helical CT of the abdomen and pelvis was performed following the administration of intrave nous contrast. Axial, coronal and sagittal reformatted images were generated. PQRS compliance statement - One or more of the following individualized dose reduction techniques wer e utilized for this study: 1. Automated exposure control 2. Adjustment of the mA and/or kV according to patient size 3. Use of iterative reconstruction technique FINDINGS: Exam is degraded secondary to patient motion. Lower Chest: Scattered basilar groundglass opacities, likely represents segmental atelectasis. Abdomen and Pelvis: The liver, gallbladder, spleen adrenals, pancreas are unremarkable. Symmetric nephrograms. No nephrol ithiasis or hydroureteronephrosis.. Subcentimeter hypodensity within the region of the left kidney, t oo small to characterize. Stomach is unremarkable. There is no evidence of apparent obstruction withi n the small or large bowel. No evidence of focal wall thickening to suggest acute inflammatory proces s. There is a moderate amount of stool throughout the colon. The appendix is well-visualized there is no free intra-abdominal air. There is nonspecific mesenteric stranding throughout the abdomen. No pa thologically enlarged abdominal lymph nodes. Vascular structures appear normal in course and caliber. The urinary bladder is distended without evidence of focal abnormality. The uterus is enlarged with h ypoattenuating fluid in the endometrial canal consistent with a post gravid uterus. The adnexa are wi thin normal limits given patient's age. No significant free pelvic fluid. Bones: Moderate compression fracture of L2 with retropulsion appears overall similar. No evidence of acute o sseous process. IMPRESSION: Exam is degraded secondary to patient motion. 1. Nonspecific mesenteric stranding throughout the abdomen. No definite focal abnormality within the abdomen or pelvis to correlate with patient's symptoms. 2. Moderate colonic stool burden suggestive of constipation. 3. appearance of the uterus. Further evaluation with pelvic ultrasound may be considered i f there is concern for pelvic pathology. Electronically signed by: Jorge Luis Rodarte DO (04/27/2021 4:54 AM) [facility]
[2021-04-27] MEDS ORDERED: NITR100C63 PO (05:06)
[2021-04-27] MEDS ORDERED: POTA20TA4 PO (05:17)
== END 2021-04-27 05:28 | disposition home or self-care (01) ==
LOC: ER 01:22
DX: O86.20 Urinary tract infection following delivery, unspecified (principal); Z98.890 Other specified postprocedural states
CPT/HCPCS: 36415; 74177; 80053; 81001; 81025; 83690; 85025; 87086; 96374; 99285; J1885; Q9967

== ENCOUNTER 2021-11-13 16:54 | Emergency (ER) | payer OTHER ==
[~2021-11-13] VITALS: Ht 160 cm; Wt 75.3 kg
[~2021-11-13 16:54] MED LIST changes: +NITR100C63 PO; +POTA20TA4 PO
[2021-11-13 17:12] VITALS: BP 144/97
[2021-11-13] MEDS ORDERED: IBUPROFEN 200 MG TABLET. PO ONE (18:00)
[2021-11-13 18:25] LABS: INFLUENZA A PATIENT NEGATIVE (NEGATIVE); INFLUENZA B PATIENT NEGATIVE (NEGATIVE)
[2021-11-13] MEDS ORDERED: GUAI400T78 PO (18:39)
[2021-11-13] MEDS ORDERED: BENZ-8 PO (18:39)
--- NOTE | 2021-11-13 18:40 | PHYS DOC ---
Past Medical History Additional Past Medical Histor: POSSIBLE PREGNACY RELATED HTN. Past Surgical History: No Surgical History Smoking Status: Never Smoker Alcohol Use: None General Adult EDM: Chief Complaint: FEVER HPI: HPI: Patient is a 31 year old female who presents with 3-day history of headache, facial pain, nasal congestion, cough, body aches, fever. She did not take her temperature at home, but feels hot and though she has a fever. Patient rates her headache 9/10 nonradiating. She has not taken any medication today. Patient denies sputum production, shortness of breath. Patient does not speak much Kinyarwanda, and her family member at bedside aided in translation. Review of Systems: Review of Systems: ROS negative or noncontributory except as mentioned in HPI. Heart Score: C/O Chest Pain: No Current Medications: Current Medications Medications (Trade) Dose Ordered Sig/Noemi Start Time Stop Time Status Last Admin Dose Admin Ibuprofen (Motrin) 600 mg 1X ONCE 11/13/21 18:00 11/13/21 18:05 DC 11/13/21 18:25 600 MG Allergies: Allergies: Allergies Coded Allergies Type Severity Reaction Last Updated Verified No Known Drug Allergies 11/13/21 No Physical Exam: PE: Constitutional: Well developed, well nourished, no acute distress, non-toxic appearance. HENT: Normocephalic, atraumatic, bilateral external ears normal, bilateral nares with turbinate swelling and mucus. Eyes: EOMI, conjunctiva normal, no discharge. Neck: Normal range of motion, no stridor. Skin: Warm, dry, no erythema, no rash. Neurologic: Alert and oriented x4, normal motor function, normal sensory function, steady and symmetrical upright gait, no focal deficits noted. Current Patient Data: Labs: Laboratory Tests Test 11/13/21 17:50 11/13/21 18:03 Influenza Type A Antigen Negative (NEGATIVE) Influenza Type B Antigen Negative (NEGATIVE) POC Urine HCG, Qualitative Hcg negative (Negative) Vital Signs: Vital Signs Date Time Temp Pulse Resp B/P (MAP) Pulse Ox O2 Delivery O2 Flow Rate FiO2 11/13/21 17:12 98.2 104 16 144/97 (113) 98 Room Air 98.2 Course & Med Decision Making: Course & Med Decision Making Pertinent Labs and Imaging studies reviewed. (See chart for details) Patient is a 31-year-old female who presents with multiple complaints, concerning for viral syndrome versus infectionCOVID-19 cannot be ruled out. Swabs for flu A&B as well as COVID-19 obtained. Patient was provided with supportive treatment measures for nasal congestion as well as her other complaints. Return precautions were provided. Patient is to quarantine until COVID-19 test results become available. Patient and her family member at bedside understand are agreeable to discharge plan. Dragon Disclaimer: Dragon Disclaimer: This electronic medical record was generated, in whole or in part, using a voice recognition dictation system. Departure Departure Impression: Primary Impression: Acute viral syndrome Additional Impression: Elevated blood pressure reading Referrals: NO PCP (PCP) Patient Instructions: Viral Syndrome Additional Instructions: Follow the following supportive treatment measures: - Cool mist humidifier with plain water at bedside while you sleep - Mucinex (guaifenesin) per box instructions - Tessalon perles (benzonatate) for cough, especially at night before bed - Alternate ibuprofen and acetaminophen every four hours for body aches/fever/headache If antibiotics were prescribed, take them as directed. You have been tested for or diagnosed with COVID-19 infection. It is an in fection caused by a new type of coronavirus. COVID-19 will cause cold-like or mild flu symptoms in most. It can cause more severe symptoms like problems breathing in some. There is no treatment for COVID-19. The body will clear the infection over time. Self-care will help to ease discomfort. Steps to Take: - Rest as needed. - Choose healthy foods including fruits and vegetables. Drink water throughout the day. - Get plenty of sleep each night. - If you smoke, try to quit. It may ease breathing. - Avoid alcohol. - Keep Others Healthy - The virus can spread to others. Droplets are released every time you sneeze or cough. The droplets can get into the mouth, nose, or eyes of people near you and lead to infection. To lower the chances of spreading COVID-19 to others: Stay at home until your doctor has said it is safe to leave. If you tested positive this will mean staying isolated until both of the following are true: - At least 10 days have passed since the start of illness. - You are free of fever for at least 72 hours without the use of medicine. During this time: - Avoid public areas, events, or transportation. Do not return to work or school until your doctor has said it is safe to do so. - Call ahead if you need to go to a medical center. Let them know you may have COVID-19. It will help them guide you where to go. They may also ask you to wear a facemask when you come to the office. - If you call for emergency medical services, let them know you may have COVID- 19. While at home: - Try to avoid close contact with others. Stay about 6 feet away. - If possible, spend most of your time in a separate room from others. - Use a face mask if you will be in close contact with others such as sharing a room or vehicle. - Have someone wipe down common surfaces in the home. Use household manager warehouse every day on areas like doorknobs, counters, or sinks. - Cough or sneeze into a tissue. Throw the tissue away right after use. If a tissue is not available, cough or sneeze into your elbow. - Wash your hands often. Wash them after sneezing or coughing. Use soap and water and wash or at least 20 seconds. Alcohol based hand cleaner and trimmer can be used if soap and water is not available. - Do not prepare food for others. Avoid sharing personal items like forks, spoons, or toothbrushes. - Avoid close contact with pets while you are sick. There is no evidence of the virus passing to pets. This is a safety step until more is known about this virus. - Isolation can be frustrating. Social interaction can help. Keep in touch with friends and family through phone and tech options. You can still interact with others in your home, just keep a safe distance of about 6 feet. Follow-up: - Your doctors office will check in with you to see if there are any changes in your health. - You may be asked to keep track of symptoms to share with them. They will also let you know when you are clear to be in public again. Contact your doctor if your recovery is not going as you expect. Get emergency care if you have problems such as: - Trouble breathing with oxygen saturation <90% - Nonstop chest pain or pressure - Changes in awareness, confusion, or problems waking - Lips or face have bluish color - Worsening of symptoms If you think you have an emergency, call for emergency medical services right away. As taken from [facility] Benzonatate (BENZONATATE) 100 Mg Capsule 1-2 CAP PO Q4HRS, #20 CAP Prov: JAYA BLAS 11/13/21 Guaifenesin (GUAIFENESIN) 400 Mg Tablet 1 TAB PO TID for cough for 5 Days, #15 TAB 0 Refills Prov: JAYA BLAS 11/13/21 JAYA BLAS Nov 13, 2021 18:40
== END 2021-11-13 18:55 | disposition home or self-care (01) ==
LOC: ER 16:54
DX: B34.9 Viral infection, unspecified (principal); R03.0 Elevated blood-pressure reading, without diagnosis of hypertension; Z20.822 Contact with and (suspected) exposure to COVID-19
CPT/HCPCS: 81025; 87428; 99283; C9803; U0003